=== PATIENT | male | born 1945 | race Caucasian/White ===

== ENCOUNTER 2022-10-23 11:06 | Outpatient (CLI) | payer MEDICARE, OTHER, SELFPAY ==
--- NOTE | ~2022-10-23 | PE_ITS ---
EXAMINATION: PET_PETPSMAST_PT DATE: 10/23/2022 14:54 INDICATION: Gastric cancer TECHNIQUE: 10.039 mCi of pipflufolastat F-18 (18-F-DCFPyL) was administered i.v. Low dose computed t omography (CT) images were acquired from the base of the brain to the base of the brain to the proxim al thighs for attenuation correction and anatomic localization. Positron emission tomography (PET) im ages were acquired in the same distribution beginning 110 minutes after injection. Images including f used PET/CT images were reconstructed in axial, coronal, and sagittal planes. Automated exposure cont rol technique was employed. The dose-length product was 670.49mGy-cm. COMPARISON: None FINDINGS: Head/neck: Typical pattern of symmetric physiologic increased activity in the lacrimal, parotid and submandibula r glands as well as along the mucosa of the nasal and oral cavities, the armando-, naso- and hypopharynx, the glottis and esophagus. Small focus of increased uptake with maximal SUV of 7.8 along the mesial surface of the left mandible which without radiologic correlate most likely related to salivary activ ity. No pathologically enlarged or PSMA avid cervical lymphadenopathy. Chest: Lungs are clear with no suspicious pulmonary nodules, pneumonia, pulmonary edema or pleural effusion. Heart size is normal. No pericardial effusion. Thoracic aorta is normal in caliber. No pathologicall y enlarged or PSMA avid thoracic lymphadenopathy. Abdomen/pelvis/proximal thighs: Physiologic renal accumulation and excretion of activity in the kidneys, bladder and along portions o f ureters. 1.2 cm exophytic cyst at the lower pole of the right kidney. Normal degree and slightly he terogenous pattern of increased uptake throughout the liver and spleen without radiologic correlate o r dominant PSMA avid lesion. The gallbladder, pancreas and bilateral adrenal glands are normal. Moder ate uptake scattered throughout the bowels with typical duodenal and proximal jejunal predominance an d without radiologic correlate, also likely physiologic. Normal appendix. Approximately 1.5 cm focus of intense PSMA activity with maximal SUV of 16.8 at the right side of the mildly enlarged prostate c onsistent with reported history of prostate cancer. There are 2 relatively symmetric is slightly smal ler foci of less intense uptake at the junction of the bilateral seminal vesicles and the prostate wi th maximal SUV of 11.2 on the left and 11.0 on the right suspicious for additional prostate cancer. N o other abnormal foci of increased uptake or pathologically enlarged lymphadenopathy in the abdomen, pelvis or proximal thighs. Musculoskeletal: Tiny focus of indeterminate mild uptake with maximal SUV of 2.5 along the right temporal bone in the vicinity of the sigmoid sinus which is also without radiologic correlate. Apical pattern of relativel y symmetric mild likely ganglia uptake at a few of the neural foramina at the cervical and lumbosacra l spine. No other suspicious foci of abnormal bone uptake suspicious lytic or blastic bone lesions to suggest osseous metastatic disease. There are bridging osteophytes at multiple levels in the spine, consistent with diffuse idiopathic skeletal hyperostosis (DISH). IMPRESSION: 1. Foci of prominent PSMA uptake at the right side of the prostate and at the junction of the prostat e and left and right seminal vesicles consistent with reported history of prostate cancer. No other l esions suspicious for metastatic disease. Reviewed, dictated and finalized at location A. IMPRESSION: 1. Foci of prominent PSMA uptake at the right side of the prostate and at the j unction of the prostate and left and right seminal vesicles consistent with rep orted history of prostate cancer. No other lesions suspicious for metastatic di se
== END 2022-10-23 11:07 | disposition home or self-care (01) ==
PROVIDERS: PCP Family Medicine; Visit Provider Urology
DX: C61 Malignant neoplasm of prostate (principal)
CPT/HCPCS: 78815; A9595